=== PATIENT | male | born 1945 | race Caucasian/White ===

== ENCOUNTER → 2018-04-09 | Outpatient (CLI) | payer OTHER, BC ==
[~2018-04-09] MED LIST: ASPIRIN EC325 MG PO; CARBIDOPA-LEVO1 EAC3 PO; CARDIZEM CD240 MG PO; CENTRUM SILVER1 EAC1 PO; ETODOLAC500 MG PO; IBUPROFEN 200200 M1 PO; LISINOPRIL20 MG PO; MAGNESIUM400 MG PO; MOBIC15 MG PO; MOBIC7.5 MG PO; PACERONE 200 M200 M1 PO; PANTOPRAZOLE SO40 M1 PO; PRADAXA150 MG PO; PROPAFENONE 22225 MG PO; RELAFEN750 MG PO; SELEGILINE HCL5 M1 PO; SIMVASTATIN40 MG PO; TRAMADOL 50 MG50 MG PO; VOLTAREN GEL 1100 G1 TOP
== END ==
LOC: RAD 15:13
DX: R06.02 Shortness of breath (principal); Z86.69 Personal history of other diseases of the nervous system and sense organs